=== PATIENT | female | born 1935 | race African-American/Black ===

== ENCOUNTER → 2018-02-21 | Outpatient (CLI) | payer OTHER | END | disposition home or self-care (01) | LOC: KCIC DEXA 09:20 | DX: Z13.820 Encounter for screening for osteoporosis (principal); M85.88 Other specified disorders of bone density and structure, other site; Z78.0 Asymptomatic menopausal state | CPT/HCPCS: 77080 ==

== ENCOUNTER 2021-05-05 09:28 | Emergency (ER) | payer MEDICARE, OTHER ==
[~2021-05-05] VITALS: Ht 160 cm; Wt 68.0 kg
--- NOTE | 2021-05-05 12:12 | ED.ADGEN ---
General Adult EDM: Chief Complaint: FOOT INJURY PAIN HPI: HPI: Patient is a 85 year old AA female who presents emergency department for evaluation of discoloration to her lateral left foot for 4 days. Patient states she accidentally kicked a bed frame on Tuesday and noticed some discoloration and swelling to her lateral left foot after that. On examination patient states that the discoloration is gone away. She denies any ankle tenderness. Patient reports chronic swelling in both of her ankles because she does not wear her compression stockings. She denies any numbness, tingling, or decreased sensation of the affected extremity. Patient is noted to be hypertensive, she states she has not taken her blood pressure medication in 2 days. Patient asked why she has not been taking her blood pressure medication and she states that she just does not feel like it. Patient denies any fever, cough, dizziness, palpitations, chest pain, shortness of breath, headache, numbness, tingling, weakness, abdominal pain, nausea, vomiting, or diarrhea. She currently denies any pain or complaints. Review of Systems: Review of Systems: Complete ROS is negative unless otherwise noted in HPI. Allergies: Allergies: Allergies Coded Allergies Type Severity Reaction Last Updated Verified No Known Drug Allergies 05/05/21 No Physical Exam: PE: See Above Constitutional: Well developed, well nourished, no acute distress, non-toxic appearance. [] HENT: Normocephalic, atraumatic, bilateral external ears normal, nose normal. [] Eyes: PERRLA, EOMI, conjunctiva normal, no discharge. [] Neck: Normal range of motion, no stridor. [] Cardiovascular:Heart rate regular rhythm Lungs & Thorax: Respirations even and unlabored, no retractions, no respiratory distress Skin: Warm, dry, no erythema, no rash. [] Extremities: No cyanosis, ROM intact, 2+ edema bilateral lower extremities; tenderness to palpation over the fourth and fifth metatarsals of the left foot, crepitus, no obvious deformity, no edema, no bruise neurologic: Alert and oriented X 3, normal motor, normal sensory, no focal deficits noted. [] Psychologic: Affect normal, judgement normal, mood normal. [] Current Patient Data: Vital Signs: Vital Signs Date Time Temp Pulse Resp B/P (MAP) Pulse Ox O2 Delivery O2 Flow Rate FiO2 05/05/21 11:45 98.2 58 18 203/93 96 Room Air 98.2 EKG: EKG: [] Heart Score: C/O Chest Pain: No Radiology/Procedures: Radiology/Procedures: PROCEDURE: FOOT LEFT 3V EXAM: Left foot, 3 views. HISTORY: Blunt trauma. COMPARISON: None. FINDINGS: 3 views of the left foot are obtained. There is no fracture, dislocation or subluxation. There is mild first metatarsal phalangeal joint spurring. There is a tiny plantar spur. There is minimal enthesopathy at the Achilles tendon insertion. IMPRESSION: 1. No acute osseous finding. 2. Mild first metatarsophalangeal joint osteoarthritis. Electronically signed by: Elisha Mchugh MD (05/05/2021 12:32 PM) [id number] [] Course & Med Decision Making: Course & Med Decision Making Pertinent Labs and Imaging studies reviewed. (See chart for details) 85-year-old female presents emergency department for evaluation of a left foot injury. She was noted to be hypertensive on arrival. Patient stated that she had not taken her blood pressure medication in 2 days. Patient took her blood pressure medication while being triaged by the ER nurse David. X-ray is negative for any acute findings. I advised patient she can take Tylenol or ibuprofen as needed for pain. I encouraged her to take her blood pressure medications as prescribed, follow-up with her primary care doctor in 1 to 2 days, return to the ER symptoms worsen. BP was 203/93 before d/c, pt did not want BP treatment she took her second blood pressure medication and wanted to go home. Patient verbalized an understanding of home care, medications, follow-up, and return to ED instructions and was in agreement with the plan of care. [] Dragon Disclaimer: Dragon Disclaimer: This electronic medical record was generated, in whole or in part, using a voice recognition dictation system. Departure Departure Impression: Primary Impression: Acute pain of left foot Additional Impression: Hypertension Disposition: 01 HOME / SELF CARE / HOMELESS Condition: STABLE Referrals: SAMANTHA LOUIS MD (PCP) Patient Instructions: Foot Contusion, [id number], Hypertension, [id number] Additional Instructions: Tylenol or Ibuprofen as needed for pain. Take your blood pressure medication as prescribed. Follow up with your primary care doctor in 1-2 days return to the ER if symptoms worsen. Problem Qualifiers Additional Impression: Hypertension Hypertension type: primary hypertension Qualified Codes: I10 - Essential (primary) hypertension LOREN DENIS [employer]OOK May 05, 2021 12:12
--- NOTE | 2021-05-05 12:34 | RAD ---
EXAM: Left foot, 3 views. HISTORY: Blunt trauma. COMPARISON: None. FINDINGS: 3 views of the left foot are obtained. There is no fracture, dislocation or subluxation. Th ere is mild first metatarsal phalangeal joint spurring. There is a tiny plantar spur. There is minima l enthesopathy at the Achilles tendon insertion. IMPRESSION: 1. No acute osseous finding. 2. Mild first metatarsophalangeal joint osteoarthritis. Electronically signed by: Elisha Mchugh MD (05/05/2021 12:32 PM) [id number]
[2021-05-05 13:00] VITALS: BP 202/93
== END 2021-05-05 13:00 | disposition home or self-care (01) ==
LOC: ER 09:28
DX: M79.672 Pain in left foot (principal); I10 Essential (primary) hypertension; G89.11 Acute pain due to trauma; W22.03XA Walked into furniture, initial encounter; Y93.89 Activity, other specified; Y92.89 Other specified places as the place of occurrence of the external cause; Y99.8 Other external cause status
CPT/HCPCS: 73630; 99283